=== PATIENT | male | born 1950 | race Caucasian/White ===

== ENCOUNTER → 2017-10-07 | Outpatient (CLI) | payer MEDICARE, OTHER ==
--- NOTE | 2017-10-07 16:27 | Diagnostic Imaging Report ---
PROCEDURE:ABDOMINAL ULTRASOUND COMPARISON:CT, CT ABDOMEN \T\ PELVIS W/WO CONTRAST, 11/22/2008, 9:40. Patients [facility], US, US RETROPERITONEAL ( KIDNEY )., 04/29/2017, 13:19. INDICATIONS:Screening For AAA FINDINGS: Exam is markedly limited due to patient's body habitus and overlying bowel gas. Liver: 15.3 cm. Increased hepatic parenchymal echogenicity. No focal mass. Main portal vein: 1.0 cm. Hepatopetal flow. Gallbladder: No stones, sludge, wall thickening, or pericholecystic fluid. Common Bile Duct: 0.5 cm. No echogenic filling defect. Sonographic Benjamin's sign: Negative Right kidney: 12.1 cm. No solid mass, echogenic calculi, or hydronephrosis. Normal parenchymal echogenicity. 3.5 x 3.8 x 2.5 cm cystic, anechoic lesion in the mid aspect. Left kidney: 11.8 cm. No solid mass, echogenic calculi, or hydronephrosis. Normal parenchymal echogenicity. 9.4 x 6.8 x 7.8 cm complex, multiloculated cyst with septations versus cluster of multiple cysts, which is mostly exophytic, in the superior pole. Septations are nonvascular. Spleen: 11.2 cm. Pancreas: Obscured by overlying bowel gas. Inferior vena cava: Obscured by overlying bowel gas. Aorta: Proximal and mid-portions are obscured by overlying bowel gas. Distal portion measures 1.5 cm in diameter Ascites: None. CONCLUSION: 1. markedly limited exam for evaluation of AAA, as most of the aorta is obscured by overlying bowel gas. Visualized portion of the distal aorta is normal in caliber. 2. Hepatic steatosis. 3. Stable simple cyst in the right kidney and complex cystic lesion in the left kidney Eulalio Rutherford M.D. Dictated by: Eulalio Rutherford M.D. on 10/07/2017 at 16:35 Electronically approved by: Eulalio Rutherford M.D. on 10/07/2017 at 16:35
--- NOTE | 2017-10-07 17:04 | Diagnostic Imaging Report ---
PROCEDURE: CT CHEST WITHOUT CONTRAST CT scan of the chest WITHOUT intravenous contrast, using standard protocol. TECHNIQUE: The chest was scanned utilizing a multidetector helical scanner from the apex to the level of the adrenal glands. No IV contrast was administered per physician's request. Coronal and sagittal multiplanar reformations were obtained. COMPARISON: None. INDICATIONS: Cough, ex-smoker, screening exam. FINDINGS: Lines/tubes: None. Lungs and Airways: Mild to moderate centrilobular emphysematous changes, predominantly in the upper lobes, right greater the left. Focal linear scarring is adjacent to vertebral osteophyte in the medial superior segment of the right lower lobe (series 3, image 58). Focal triangular shaped atelectasis or scarring in the posteromedial left lower lobe (series 3, image 102, and sagittal image 77). Polygonal shaped, perifissural 6 mm nodule in the right major fissure (series 3, image 76 and sagittal image 19). No consolidation, other opacities, masses, or pulmonary nodules. Airways are clear, without other bronchial lesions. Pleura: No effusion, or pneumothorax. Bilateral calcified pleural plaques (for example, series 2, images 68, 86, 92, 45). Heart and mediastinum: Thyroid is unremarkable. Heart size is normal. No pericardial effusion. Atherosclerotic calcification of the coronary arteries and thoracic aorta. Aorta is non-aneurysmal. The main pulmonary artery measures 2.9 cm. Lymph nodes: No mediastinal, hilar, or axillary adenopathy. Abdomen: Limited views of the upper abdomen show no abnormality within the visualized liver, spleen, pancreas. The adrenal glands are unremarkable. Bones: No acute bony abnormalities. Degenerative disc changes in the thoracic spine. No lytic lesions. Soft tissues are unremarkable. IMPRESSION: 1. Lfjx-iz-frwdmaoc centrilobular emphysematous changes, right greater than left. 2. No consolidation, masses, or pulmonary nodules. 3. Bilateral calcified pleural plaques, consistent with exposure to asbestos. Eulalio Rutherford M.D. Dictated by: Eulalio Ruthreford M.D. on 10/07/2017 at 17:11 Electronically approved by: Eulalio Rutherford M.D. on 10/07/2017 at 17:11
== END ==
LOC: US 12:57
PROVIDERS: ATTEND Internal Medicine
DX: R05 Cough (principal); Z87.891 Personal history of nicotine dependence
CPT/HCPCS: 71250; 76700

== ENCOUNTER → 2018-07-10 | Day surgery (SDC) | payer MEDICARE ==
[2018-07-08 11:54] LABS: BASOPHILS % 0.3 % (0.0-1.0); EOSINOPHILS # (AUTO) 0.2 (0.0-0.4); EOSINOPHILS % 3.5 % (0.0-6.0); HEMATOCRIT 37.4 % (38.2-49.6); HEMOGLOBIN 12.3 g/dL (14.0-18.0); LYMPHOCYTES # (AUTO) 1.6 (1.0-3.2); LYMPHOCYTES % 26.1 % (18.0-39.1); MEAN CORPUSCULAR HGB CONC 32.9 g/dL (31-35); MEAN CORPUSCULAR VOLUME 91.2 fL (81-99); MONOCYTES # (AUTO) 0.6 (0.2-0.8); MONOCYTES % 10.3 % (4.4-11.3); NEUTROPHILS # (AUTO) 3.7 (2.1-6.9); NEUTROPHILS % 59.5 % (38.7-80.0); PLATELET COUNT 200 x10e3/uL (140-360); RED CELL DISTRIBUTION WIDTH 13.7 % (11.7-14.4)
--- NOTE | 2018-07-08 12:35 | Diagnostic Imaging Report ---
EXAMINATION: PA and lateral views of the chest. COMPARISON: None CLINICAL HISTORY: Preoperative evaluation for urologic surgery DISCUSSION: Lines/tubes: None. Lungs: The lungs are well inflated. Scattered granuloma. No pneumonia or pulmonary edema. Pleura: There is no pleural effusion or pneumothorax. Heart and mediastinum: The cardiomediastinal silhouette is normal. Bones and soft tissues: No acute bony abnormalities. IMPRESSION: No acute cardiopulmonary abnormalities. Signed by: Dr. Hakeem Montoya M.D. on 07/08/2018 12:31 PM
[~2018-07-10] MED LIST: AMLODIPINE BESY10 MG PO; ASPIR-LOW81 MG; CEFTRIAXONE SOD 1 GM VIAL ONE; DEXAMETHASONE SOD PHOS INJ 4 MG/ML VIAL ONE; DOXAZOSIN PO; FENTANYL CITRATE/PF 100MCG/2 ML INJ ONE; FINASTERIDE5 MG PO; GENTAMICIN 80MG/NS 100 ML 200 ML IV ONE; IOPAMIDOL 610MG/1ML 300 MG/ML VIAL IV ONE; LIDOCAINE HCL 2% LOCAL INJ 5 ML SDV VIAL INJ ONE; LOSARTAN POTAS100 MG PO; METFORMIN HCL500 MG PO; MIDAZOLAM HCL 2 MG/2 ML VIAL ONE; OMEPRAZOLE40 MG; ONDANSETRON HCL INJ 2 MG/ML VIAL ONE; PROPOFOL IV EMULSION 10 MG/ML 20 ML VIAL ONE; SEVOFLURANE INHAL SOLN 250 ML PEN BTL ONE; ZETIA10 MG PO
[2018-07-10 13:10] VITALS: BP 125/59
--- OUTSIDE RECORDS SUMMARY | 2018-08-04 05:37 | XMS REPORT ---
Author Author [facility] Address Unknown Phone Unavailable Care Team Providers Care City Clerk Name Role Phone LARY IBRAHIM Unavailable Unavailable BERTHA TOMLINSON Unavailable Unavailable Problems This patient has no known problems. Allergies, Adverse Reactions, Alerts This patient has no known allergies or adverse reactions. Medications This patient has no known medications. Results Test Description Test Time Test Comments Text Results Atomic Results Result Comments CHEST 2 VIEWS 2018-07-08 12:30:00 [place] [address] Patient Name: TYRESE CHURCH MR #: [id number] : 1950 Age/Sex: 67/M Req #: [id number] [facility] Physician: Ordered by: LARY IBRAHIM MD Report #: [id number] Location: OR Room/Bed: Procedure: [id number] DX/CHEST 2 VIEWS Exam Date: 07/08/18 Exam Time: 1150 REPORT STATUS: Signed EXAMINATION: PA and lateral views of the chest. COMPARISON: None CLINICAL HISTORY: Preoperative evaluation for urologic surgery DISCUSSION: Lines/tubes: None. Lungs: The lungs are well inflated. Scattered granuloma. No pneumonia or pulmonary edema. Pleura: There is no pleural effusion or pneumothorax. Heart and mediastinum: The cardiomediastinal silhouette is normal. Bones and soft tissues: No acute bony abnormalities. IMPRESSION: No acute cardiopulmonary abnormalities. Signed by: Dr. Mark Byers M.D. on 07/08/2018 12:31 PM Dictated By: MARK BYERS MD 1231 Transcribed By: ONUR on 07/08/18 1231 COPY TO: LARY IBRAHIM MD US ABDOMEN COMPLETE [place] [address] Patient Name: TYRESE CHURCH MR #: [id number] : 1950 Age/Sex: 67/M Req #: [id number] Adm Physician: Ordered by: BERTHA TOMLINSON MD Report #: [id number] Location: US Room/Bed: Procedure: [id number] US/US ABDOMEN COMPLETE Exam Date: 10/07/17 Exam Time: 1349 REPORT STATUS: Signed PROCEDURE: ABDOMINAL ULTRASOUND COMPARISON: CT, CT ABDOMEN T PELVIS W/WO CONTRAST, 11/22/2008, 9:40. Patients [facility], US, US RETROPERITONEAL ( KIDNEY )., 04/29/2017, 13:19. INDICATIONS: Screening For AAA FINDINGS: Exam is markedly limited due to patient's body habitus and overlying bowel gas. Liver: 15.3 cm. Increased hepatic parenchymal echogenicity. No focal mass. Main portal vein: 1.0 cm. Hepatopetal flow. Gallbladder: No stones, sludge, wall thickening, or pericholecystic fluid. Common Bile Duct: 0.5 cm. No echogenic filling defect. Sonographic Benjamin's sign: Negative Right kidney: 12.1 cm. No solid mass, echogenic calculi, or hydronephrosis. Normal parenchymal echogenicity. 3.5 x 3.8 x 2.5 cm cystic, anechoic lesion in the mid aspect. Left kidney: 11.8 cm. No solid mass, echogenic calculi, or hydronephrosis. Normal parenchymal echogenicity. 9.4 x 6.8 x 7.8 cm complex, multiloculated cyst with septations versus cluster of multiple cysts, which is mostly exophytic, in the superior pole. Septations are nonvascular. Spleen: 11.2 cm. Pancreas: Obscured by overlying bowel gas. Inferior vena cava: Obscured by overlying bowel gas. Aorta: Proximal and mid-portions are obscured by overlying bowel gas. Distal portion measures 1.5 cm in diameter Ascites: None. CONCLUSION: 1. markedly limited exam for evaluation of AAA, as most of the aorta is obscured by overlying bowel gas. Visualized portion of the distal aorta is normal in caliber. 2. Hepatic steatosis. 3. Stable simple cyst in the right kidney and complex cystic lesion in the left kidney Celi Rutherford M.D. Dictated by: Celi Rutherford M.D. on 10/07/2017 at 16:35 Electronically approved by: Celi Rutherford M.D. on 10/07/2017 at 16:35 Dictated By: CELI RUTHERFORD MD 1635 Transcribed By: JESSIE on 10/07/17 1635 COPY TO: BERTHA TOMLINSON MD CT CHEST WO [place] [address] Patient Name: TYRESE CHURCH MR #: [id number] : 1950 Age/Sex: 67/M Req #: [id number] Adm Physician: Ordered by: BERTHA TOMLINSON MD Report #: [id number] Location: US Room/Bed: Procedure: [id number] CT/CT CHEST WO Exam Date: 10/07/17 Exam Time: 1345 REPORT STATUS: Signed PROCEDURE: CT CHEST WITHOUT CONTRAST CT scan of the chest WITHOUT intravenous contrast, using standard protocol. TECHNIQUE: The chest was scanned utilizing a multidetector helical scanner from the apex to the level of the adrenal glands. No IV contrast was administered per physician's request. Coronal and sagittal multiplanar reformations were obtained. COMPARISON: None. INDICATIONS: Cough, ex-smoker, screening exam. FINDINGS: Lines/tubes: None. Lungs and Airways: Mild to moderate centrilobular emphysematous changes, predominantly in the upper lobes, right greater the left. Focal linear scarring is adjacent to vertebral osteophyte in the medial superior segment of the right lower lobe (series 3, image 58). Focal triangular shaped atelectasis or scarring in the posteromedial left lower lobe (series 3, image 102, and sagittal image 77). Polygonal shaped, perifissural 6 mm nodule in the right major fissure (series 3, image 76 and sagittal image 19). No consolidation, other opacities, masses, or pulmonary nodules. Airways are clear, without other bronchial lesions. Pleura: No effusion, or pneumothorax. Bilateral calcified pleural plaques (for example, series 2, images 68, 86, 92, 45). Heart and mediastinum: Thyroid is unremarkable. Heart size is normal. No pericardial effusion. Atherosclerotic calcification of the coronary arteries and thoracic aorta. Aorta is non- aneurysmal. The main pulmonary artery measures 2.9 cm. Lymph nodes: No mediastinal, hilar, or axillary adenopathy. Abdomen: Limited views of the upper abdomen show no abnormality within the visualized liver, spleen, pancreas. The adrenal glands are unremarkable. Bones: No acute bony abnormalities. Degenerative disc changes in the thoracic spine. No lytic lesions. Soft tissues are unremarkable. IMPRESSION: 1. Vkor-yj-ciznbwhl centrilobular emphysematous changes, right greater than left. 2. No consolidation, masses, or pulmonary nodules. 3. Bilateral calcified pleural plaques, consistent with exposure to asbestos. Celi Rutherford M.D. Dictated by: Celi Rutherford M.D. on 10/07/2017 at 17:11 Electronically approved by: Celi Rutherford M.D. on 10/07/2017 at 17:11 Dictated By: CELI RUTHERFORD MD 10 Transcribed By: JESSIE on 10/07/171710 COPY TO: BERTHA TOMLINSON MD
--- NOTE | 2018-08-31 02:26 | Operative Report ---
DATE OF PROCEDURE: July 10, 2018 PREOPERATIVE DIAGNOSES 1. Obstructive BPH. 2. Incomplete bladder emptying. 3. Nephrolithiasis. 4. Renal cyst. POSTOPERATIVE DIAGNOSES 1. Obstructive BPH. 2. Incomplete bladder emptying. 3. Nephrolithiasis. 4. Renal cyst. OPERATIONS PERFORMED 1. Cystourethroscopy with bilateral ureteral catheterization and retrograde ureteropyelography (separate procedure performed for the incomplete bladder emptying, nephrolithiasis, and renal cysts). 2. Interpretation of retrograde ureteropyelography. 3. Supervision of fluoroscopy. No radiologist present. 4. Cystourethroscopy with implantation of 4 UroLift lift implants. ANESTHESIA: General. COMPLICATIONS: None. CLINICAL SUMMARY: Jose Solano is a 67-year-old with, who is on medical therapy for symptomatic BPH with failing of therapy. He is brought to the operating today for the above procedures. He has a known renal cyst, as well as small renal stones. He is brought for evaluation. He is aware of the risks of bleeding, infection, injury to adjacent structures, need for additional procedures, and elected to proceed. OPERATIVE PROCEDURE IN DETAIL: Informed consent was verified. Jose Solano was properly identified, taken to operating room, placed on the cystoscopy table in supine position. Anesthesia was uneventfully begun. Patient was then carefully and gently repositioned in the dorsal lithotomy position with all pressure points well padded. His genitalia were prepared and draped in usual sterile fashion. The 22.5-Luxembourgish cystoscope sheath with the visual obturator in place was atraumatically inserted patient's urethra. It was guided down the unremarkable urethra, passed through the normal sphincteric region, through the prostate bed, was significant for bilobar prostatic hypertrophy with an elevated median bar and visual obstruction. Panendoscopy of urinary bladder, revealed grade-2 trabeculations, but no tumors, no stones, and no diverticula. Normally positioned and configured ureteral orifices were identified. A ureteral catheter was used cannulate each ureter and retrograde ureteropyelograms were performed. Interpretation of retrograde ureteropyelography: Contrast was instilled in retrograde fashion bilaterally. There were no tumors. There were no stones. There were no suspicious lesions. There was distortion of the upper pole [place] in the right hand side from the known renal cyst. The small calcifications were noted on CT could not be demonstrated fluoroscopically. Unobstructed drainage was observed fluoroscopically. We then drained the bladder, removed the cystoscope. We then replaced it with a 20-Luxembourgish cystoscope with visual obturator. We then utilized UroLift implants. Two implants were placed on each side. All implants were placed anterolaterally. Two implants were placed on each side, 1.5 cm distal to the bladder neck and 1 on each side anterolaterally at the level of the verumontanum. This resulted in a continuous anterior open channel. The patient's bladder was then drained. The cystoscope was withdrawn and the patient was uneventfully reversed from anesthesia and taken to recovery room in stable condition. Explicit postoperative instructions were given and will follow the patient up in the office. At his followup appointment, we plan to perform uroflowmetry and bladder ultrasonography. Job#: [id number] CQ
== END | disposition home or self-care (01) ==
LOC: OR 07:37
PROVIDERS: ATTEND Urology
DX: N40.1 Benign prostatic hyperplasia with lower urinary tract symptoms (principal); N13.8 Other obstructive and reflux uropathy; R39.14 Feeling of incomplete bladder emptying; N20.0 Calculus of kidney; N28.1 Cyst of kidney, acquired; N39.0 Urinary tract infection, site not specified; N32.89 Other specified disorders of bladder; M19.90 Unspecified osteoarthritis, unspecified site; J43.9 Emphysema, unspecified; E11.9 Type 2 diabetes mellitus without complications; K44.9 Diaphragmatic hernia without obstruction or gangrene; I10 Essential (primary) hypertension; K21.9 Gastro-esophageal reflux disease without esophagitis; Z88.8 Allergy status to other drugs, medicaments and biological substances; Z01.812 Encounter for preprocedural laboratory examination; Z01.818 Encounter for other preprocedural examination; Z79.82 Long term (current) use of aspirin; Z79.84 Long term (current) use of oral hypoglycemic drugs; Z87.891 Personal history of nicotine dependence
CPT/HCPCS: 52005; C9740; 36415; 71046; 74420; 82948; 85025; J0696; J1100; J1580; J2001; J2250; J2405; L8699